=== PATIENT | male | born 1965 | race Caucasian/White ===

== ENCOUNTER 2016-10-17 12:52 | Outpatient (CLI) | payer OTHER | END 2016-10-17 12:53 | disposition home or self-care (01) | DX: R05 Cough (principal); I51.7 Cardiomegaly ==

== ENCOUNTER 2016-10-25 13:23 | Outpatient (CLI) | payer OTHER | END 2016-10-25 13:24 | disposition home or self-care (01) | DX: R05 Cough (principal) ==

== ENCOUNTER 2022-08-18 17:42 | Outpatient (CLI) | payer OTHER | END 2022-08-18 17:43 | disposition home or self-care (01) | LOC: DI 17:42 | PROVIDERS: ATTEND Student in an Organized Health Care Education/Training Program | DX: Z53.9 Procedure and treatment not carried out, unspecified reason (principal) ==

== ENCOUNTER 2022-09-02 06:54 | Outpatient (CLI) | payer OTHER ==
--- NOTE | 2022-09-02 09:36 | MRI Report ---
PROCEDURE: KNEE WO - LT INDICATIONS: KNEE PAIN TECHNIQUE: Noncontrast sagittal PD fast spin echo and T2 fast spin echo with fat saturation, sagittal 3-D gradie nt sequence with fat saturation; coronal T1 spin echo and PD fast spin echo with fat saturation, and axial PD fast spin echo with fat saturation through the knee. COMPARISON: None. FINDINGS: Image quality: Excellent. Menisci: Peripheral displacement of medial meniscus bowing medial collateral ligament is seen. Comple x oblique tear involving body and posterior horn of medial meniscus is noted extending to both superi or and inferior articulating surfaces. Torn posterior medial meniscal root ligament is noted. Subtle oblique tear is also noted involving posterior horn of lateral meniscus extending to inferior articul ating surface. There is suggestion of perimeniscal cyst formation adjacent to posterior horn of later al meniscus measures 1.4 x 1.4 x 2.2 cm in size. Cruciate ligaments: The anterior cruciate ligament is thickened with intrasubstance T2 hyperintense signal near its femoral insertion. The posterior cruciate ligament is intact. Medial structures: The medial collateral ligament appears thickened with intrasubstance T2 hyperinte nse signal. The posterior oblique ligament, semimembranosus tendon insertions, and oblique popliteal ligament, and meniscocapsular junction appear intact. Visualized portions of the pes anserinus tendo ns appear normal. No abnormal bursal fluid. Lateral structures: The lateral collateral ligament, long and short heads of the biceps femoris tend on appear intact. The popliteus tendon appears normal; the popliteofibular ligament appears intact. Iliotibial band appears normal. Anterior structures: The quadriceps and patellar tendons appear intact. Patellar alignment is raul l. No femoral trochlear dysplasia or ventral trochlear prominence. No edema in the infrapatellar fa t pad. Bones and cartilage: Mild to moderate tricompartmental osteoarthritis and chondromalacia is seen most notably in medial femoral tibial compartment. Mild marrow edema involving weightbearing portion of m edial femoral condyle and adjacent medial tibial plateau is seen without discrete fracture line. Joint space: There is moderate knee joint fluid. Possible loose body in posterior aspect of medial femoral tibial compartment is seen best seen on series 7 image 17. No Reilly's cyst. Normal appearing synovial plicae are incidentally noted. IMPRESSION: 1. Peripheral displacement of medial meniscus bowing medial collateral ligament. Complex tear involvi ng body and posterior horn of medial meniscus extending to both superior and inferior articulating pierre rfaces. Torn posterior medial meniscal root ligament. Subtle oblique tear involving posterior horn of lateral meniscus extending to inferior articulating surface. Suggestion of perimeniscal cyst adjacen t to posterior horn of lateral meniscus as above. 2. Low to moderate grade ACL sprain/intrasubstance partial thickness tear. No ACL rupture. PCL is int act. 3. Low to moderate grade MCL sprain/intrasubstance partial thickness tear. 4. Mild to moderate tricompartmental osteoarthritis and chondromalacia most notably in medial femoral tibial compartment. No fracture or dislocation. 5. Moderate amount of joint fluid. Possible loose body in posterior aspect of medial femoral tibial c ompartment and measures 5 mm in size. Reviewed by: Bran Corey MD on 09/02/2022 9:35 AM PST Approved by: Bran Corey MD on 09/02/2022 9:35 AM PST Station ID: [id number]
== END 2022-09-02 06:55 | disposition home or self-care (01) ==
LOC: DI 06:54
PROVIDERS: ATTEND Student in an Organized Health Care Education/Training Program
DX: S83.232A Complex tear of medial meniscus, current injury, left knee, initial encounter (principal); S83.282A Other tear of lateral meniscus, current injury, left knee, initial encounter; S83.512A Sprain of anterior cruciate ligament of left knee, initial encounter; S83.412A Sprain of medial collateral ligament of left knee, initial encounter; M17.12 Unilateral primary osteoarthritis, left knee; M94.262 Chondromalacia, left knee; M25.462 Effusion, left knee

== ENCOUNTER 2023-11-08 08:01 | Outpatient (CLI) | payer OTHER | END 2023-11-08 08:02 | disposition home or self-care (01) | LOC: DI 08:01 | PROVIDERS: ATTEND Nurse Practitioner Family | DX: I11.9 Hypertensive heart disease without heart failure (principal) | CPT/HCPCS: 93307 ==